=== PATIENT | male | born 1955 | race Caucasian/White ===

== ENCOUNTER 2023-11-13 20:06 | Emergency (ER) | payer BC, MEDICARE, SELFPAY ==
[2023-11-13 20:20] VITALS: BP 115/63
[2023-11-13 20:50] LABS: % Basophils 0.7 % (0-2); % Eosinophils 2.3 % (0-6); % Immature Granulocytes 0.3 % (0-0.5); % Lymphocytes 27.7 % (20.5-51.1); % Monocytes 7.8 % (1.7-9.3); % Neutrophils 61.2 % (42.2-75.2); Absolute Basophils 0.1 10^3/uL (0-0.2); Absolute Eosinophils 0.3 10^3/uL (0-0.7); Absolute Lymphocytes 3.1 10^3/uL (1.2-3.4); Absolute Monocytes 0.9 10^3/uL (0.1-0.6); Absolute Neutrophils 6.8 10^3/uL (1.4-6.5); Hematocrit 40.4 % (39.0-52.0); Hemoglobin 13.8 g/dL (13.0-18.0); Mean Corp Hgb Conc. 34.2 g/dL (33.0-37.0); Mean Corpuscular Hgb 31.5 pg (27.0-31.0); Mean Corpuscular Volume 92.2 fL (80.0-94.0); Mean Platelet Volume 8.5 fL (7.4-10.4); Nucleated Red Blood Cells % 0 % (-); Platelet Count 238 10^3/uL (130-400); Red Blood Cell Count 4.38 10^6/uL (4.70-6.10); Red Cell Dist. Width 13.2 % (11.5-14.5); White Blood Cell Count 11.1 10^3/uL (4.8-10.8)
[2023-11-13 21:05] LABS: ALT (SGPT) 12 U/L (0-50); AST (SGOT) 16 U/L (17-59); Albumin 3.7 g/dl (3.5-5.0); Alkaline Phosphatase 65 U/L (38-126); Blood Urea Nitrogen 18 mg/dl (9-20); Carbon Dioxide 30 mmol/L (22-30); Chloride 101 mmol/L (98-107); Glucose 134 mg/dl (70-99); Potassium 3.8 mmol/L (3.5-5.1); Sodium 138 mmol/L (135-145); Total Bilirubin 0.5 mg/dl (0.2-1.3); Total Protein 6.1 g/dl (6.3-8.2); eGFR > 60.00
--- NOTE | 2023-11-13 21:56 | ED.GENMED ---
Addendum entered and electronically signed by Caprice Leonard PA-C 11/17/23 07:31:
wound culture strep and staph
keep bactrim
add keflex
pt called, he feels there is some improvement
no worsening, no fever
occ some nausea/vomiting x 1 small amount hours after taking abx
thinks it is just upsetting stomach
return precuations given.
Original Note:
History of Present Illness
General
Chief Complaint: Skin Problem
Source: patient
Exam Limitations: none
Time Seen by Provider: 11/13/23 21:37
Nursing documentation reviewed up to this point in time: agreed with
Travel History
Have you had any contact with someone who has COVID-19?: No
Do you have any symptoms of coronavirus? Fever > 100 degrees, chills, cough, shortness of breath, sore throat, loss of taste or smell, muscle aches, or headache?: No
History of Present Illness
History of Present Illness:
pt is a 68 y/o M with h/o HLD, smoking, HTN
here with right hand laceration webspace between index finger and 3rd finger and then also abrasion on right foreamr both obtained 4 days ago while renovating a bathroom
pt says he knicked the skin betewen his fingers with a table saw and it wasn't sigificantly deep and then scraped his arm on something else
he has had some surrounding redness over the past 2 days
he has pain with movement of his fingers
the wound is mostly closed, there is no active drainage
he has no palmar aspect pain
tetanus is outdated
no joint pain with wrist extension/flexion
not diabetic
no fever/ chills
no h/o mrsa.
Past History
Past History
ED Past Medical History: Hypercholesterolemia and Other (Chronic back problems, previous removal of he describes as a renal cancer but it did not result in left nephrectomy. Aortobifemoral bypass)
Social History
Tobacco: Smoker
Alcohol: None
Personal:
Living: with family
Family History
Family History: Diabetes and CAD
Review of Systems
Review of Systems
Allergies reviewed?: Yes
All Other Systems: Not applicable
Phy Exam
Physical Exam
Physical Exam:
GENERAL: Alert , in no apparent distress
HEAD: NCAT
CARDIAC: Regular rate and rhythm, no edema
LUNGS: Clear breath sounds bilaterally, no acute respiratory distress, no wheezes/rales/rhonchi
NEUROLOGICAL: Alert and oriented, no focal neuro deficits, CN intact, 5/5 strength, sensation intact
SKIN: Warm and dry,
abrasion approx 3 cm dorsal right mid forearm with some granulation tissue and some surroudnign erythema
then larger area of erythema from wrist to around the abrasion, just slightly pink though, very sutble
pt jack a 1.5 cm healing laceration in webspace of 2nd and 3rd fingers on right hand as well with some granulation, no driange
pain with movement
no bony tendneress
no pamar tnedneress
can flex the fingers
MUSCULOSKELETAL: mild erythem aright forearm
wounds to right arm as above
PSYCH: Normal and appropriate interaction.
Course
Orders/Labs/Results
Orders:
Orders
11/13/23 20:41
Wound Culture [Wound/Abscess/Other Culture] Urgent
GRAZYNA Source: Arm
Specimen Description: Right
Date Specimen was Collected: 11/13/23
Time Specimen was Collected: 20:25
11/13/23 20:42
Complete Blood Count/With Diff Urgent
Comprehensive Metabolic Panel Urgent
Lactic Acid Urgent
Blood Culture Urgent
GRAZYNA Source: Blood/Venous
Specimen Description:
Date Specimen was Collected: 11/13/23
Time Specimen was Collected: 20:25
11/13/23 21:55
Sulfamethox./Trimethoprim Ds [Bactrim Ds 800 mg/160 mg] 2 tablet PO NOW STA
11/13/23 21:56
Tetanus/Diphth/Acelpertussis [Adacel] 0.5 ml IM .ONCE ONE
Abnormal Lab Results
11/13/23
20:42
WBC 11.1 H 10^3/uL
(4.8-10.8)
RBC 4.38 L 10^6/uL
(4.70-6.10)
MCH 31.5 H pg
(27.0-31.0)
Absolute Neuts (auto) 6.8 H 10^3/uL
(1.4-6.5)
Absolute Monos (auto) 0.9 H 10^3/uL
(0.1-0.6)
Glucose 134 H mg/dl
(70-99)
AST 16 L U/L
(17-59)
Total Protein 6.1 L g/dl
(6.3-8.2)
11/13/23 20:42
11/13/23 20:42
Vital Signs
Initial and Last Documented VS:
Initial Vital Signs
Temp Pulse Resp BP Pulse Ox
98.3 F 60 18 115/63 98
11/13/23 20:20 11/13/23 20:20 11/13/23 20:20 11/13/23 20:20 11/13/23 20:20
Last Documented Vital Signs
Temp Pulse Resp BP Pulse Ox
98.3 F 50 18 115/63 99
11/13/23 20:20 11/13/23 22:50 11/13/23 20:20 11/13/23 20:20 11/13/23 22:50
MDM/Problems Addressed
Differential Diagnosis Includes:
abrasion, laceration, cellulitis
no signs of tenosynovitis
MDM/Problems Addressed:
abrasion and laceratino to right arm 4 day sago wtih some surrounding erythema/warmth
no sign so ftenosynovitis/abscess
no fever/systemic sx
not diabetic
wbc normal
wounds irrigated
dressed and line drawn around eryhtmea
bactrim ds 2 po bid
recommend pt outpatient trial abx with low threshold to reutrn.
*Critical Care Note
Total Time (30-74mins, 75-104mins- exclusive of procedures): Not Applicable
ED Attending Note
-
Portions of this chart may have been created with voice recognition software.� Occasional wrong word or��sound alike� substitutions may have occurred due to the inherent limitations of voice recognition software.
Discharge Plan
Departure
Patient Disposition: Home (Routine Discharge)
Date of Disposition: 11/13/23
Time of Disposition: 22:16
Patient with high blood pressure during this ER visit?: No
Condition: Fair
Covid-19: Not Applicable
Discharge Problem:
Cellulitis, Abrasion, Laceration
Instructions: Wound Care (DC), Cellulitis (Skin Infection), Adult (DC)
Prescriptions:
New
sulfamethoxazole-trimethoprim [Bactrim DS] 800-160 mg tablet
2 tab PO Q12H 10 Days Qty: 40 0RF
No Action
gabapentin 600 MG tablet
600 mg PO TID
amlodipine 5 MG tablet
5 mg PO DAILY
metoprolol succinate 25 MG tablet extended release 24 hr
25 mg PO DAILY
atorvastatin 10 MG tablet
10 mg PO QPM
nicotine 14 MG patch 24 hour
14 mg transdermal DAILY 30 Days Qty: 30 0RF
Saccharomyces boulardii [Florastor] 250 MG powder in packet
250 mg PO BID Qty: 10 0RF
usvscmvput-tvebjudcvgope-odeq 1 TAB tablet
1 tab PO Q6HPRN PRN (Reason: headache) Qty: 18 0RF
cefuroxime axetil 500 MG tablet
500 mg PO BID Qty: 8 0RF
azithromycin [Zithromax] 500 MG tablet
500 mg PO DAILY Qty: 1 0RF
Activity Restrictions/Additional Instructions:
KEEP THE WOUNDS CLEAN AND DRY
TWICE A DAY CLEAN WITH MILD SOAP AND WATER
APPLY A NONSTICK DRESSING
WATCH THE AREA DRAWN AROUND THE REDNESS, AND IF THE REDNESS IS EXTENDING OUTSIDE THE LINE, YOU S HOULD RETURN IMMEIDATELY
ALSO RETURN FOR : FEVER, WORSENING [place], INABILITY TO MOVE THE FINGERS, OR ANY CONCERNS.
Interventions
Interventions:
*Risk Screen - Suicide Last Done: 11/13/23 20:20
*General Assessment Last Done: 11/13/23 20:20
*Neglect/Abuse Screening Last Done: 11/13/23 20:20
*Nursing Disposition Last Done: 11/13/23 22:50
ED-Skin Assessment Last Done: 11/13/23 22:50
Discharge Date and Time
Discharge Date/Time: 11/13/23 22:53
[2023-11-13] MEDS: BACTRIM DS 800 MG/160 MG 2 TABLET PO (22:30)
[2023-11-13] MEDS: ADACEL 0.5 ML IM (22:30)
== END 2023-11-13 22:53 | disposition home or self-care (01) ==
LOC: EMR 20:06
PROVIDERS: EMERGENCY PHYSICIAN Emergency Medicine; FAMILY PHYSICIAN Family Medicine
DX: S40.811A Abrasion of right upper arm, initial encounter (principal); S61.412A Laceration without foreign body of left hand, initial encounter; L03.113 Cellulitis of right upper limb; W27.0XXA Contact with workbench tool, initial encounter; F17.200 Nicotine dependence, unspecified, uncomplicated; Z23 Encounter for immunization
CPT/HCPCS: 99283; 90471; 80053; 83605; 85025; 87040; 87070; 87077; 87147; 87186; 87205; 90715